=== PATIENT | female | born 1985 | race Caucasian/White ===

== ENCOUNTER 2020-09-04 10:34 | Outpatient (CLI) | payer MEDICAID ==
[2020-09-04] VITALS (17 sets, daily range): BP systolic 105–145; BP diastolic 50–80
== END 2020-09-04 23:59 | disposition home or self-care (01) ==
LOC: CARD DIAG 10:34
PROVIDERS: ATTEND Nurse Practitioner Family
DX: R42 Dizziness and giddiness (principal)
CPT/HCPCS: 93660